=== PATIENT | female | born 1975 | race Caucasian/White ===

== ENCOUNTER 2017-01-29 19:16 | Emergency (ER) | payer MEDICAID ==
[~2017-01-29] VITALS: Ht 157.5 cm; Wt 81.1 kg
[~2017-01-29 19:16] MED LIST: ALPR1TAB2 PO; AMIT50TA PO; ELAVIL; ESCI20TA10 PO; ESTR0.5G; ESTR1TAB15 PO; HYDR-3241 PO; METH-356; METH40TA3 PO; OXYC-306
[2017-01-29 19:22] VITALS: BP 96/64
[2017-01-29] MEDS ORDERED: LIDOCAINE 1%, 20ML ONE (19:56)
[2017-01-29] MEDS ORDERED: LIDOCAINE 1%, 20ML INFIL ONE (20:00)
== END 2017-01-29 21:48 | disposition home or self-care (01) ==
LOC: ED 21:45
DX: L60.0 Ingrowing nail (principal); Z90.710 Acquired absence of both cervix and uterus
CPT/HCPCS: 11730; 99284

== ENCOUNTER 2017-05-12 19:09 | Inpatient (IN) | payer MEDICAID ==
[~2017-05-12] VITALS: Ht 157.5 cm; Wt 85.2 kg
[2017-05-12] MEDS ORDERED: METHOCARBAMOL 750 MG TABLET PO ONE (19:30)
[2017-05-12] MEDS ORDERED: KETOROLAC 30 MG/1 ML IM ONE (19:30)
[2017-05-12] MEDS ORDERED: DIAZEPAM 5 MG TABLET PO ONE (20:00)
[2017-05-12] MEDS ORDERED: DEXAMETHASONE 4 MG/ML, 1ML IVPush ONE (20:00)
[2017-05-12] MEDS ORDERED: HYDROmorphone 2 MG/ML, 1ML ONE ×2 (20:13→20:58)
[2017-05-12] MEDS ORDERED: DEXAMETHASONE 4 MG/ML, 5ML ONE (20:13)
[2017-05-12] MEDS ORDERED: DIAZEPAM 5 MG TABLET ONE (20:13)
[2017-05-12] MEDS: HYDROmorphone 1 MG/ML, 1ML IVPush PRN ×2 (20:19→21:02)
[2017-05-12] MEDS ORDERED: OMEP20TA62 PO (22:32)
[2017-05-13] MEDS ORDERED: POLYETHYLENE GLYCOL 17 GM PACKET PO PRN
[2017-05-13] MEDS ORDERED: NICOTINE 7 MG/24 HR PATCH.TD24 TD SCH
[2017-05-13] MEDS ORDERED: METHOCARBAMOL 750 MG TABLET PO PRN
[2017-05-13] MEDS ORDERED: OXYcodone/APAP 5/325MG TABLET PO PRN
[2017-05-13] MEDS ORDERED: hydrALAzine 20 MG/ML, 1ML IVPush PRN
[2017-05-13] MEDS ORDERED: ACETAMINOPHEN 325 MG TABLET PO PRN
[2017-05-13] MEDS ORDERED: ONDANSETRON 2MG/ML, 2ML IVPush PRN
[2017-05-13] MEDS ORDERED: BISACODYL 10 MG SUPP PR PRN
[2017-05-13 00:26] LABS: FREE T4 (FREE THYROXINE) 1.28 ng/dL (0.76-1.46)
[2017-05-13] MEDS ORDERED: TEMPLATE NON-FORMULARY MED. (Escitalopram Oxalate** (Lexapro**) 20 MG) HOMEMEDPO SCH ×2 (00:30→09:00)
[2017-05-13] MEDS ORDERED: CITALOPRAM 20 MG TABLET PO SCH (00:30)
[2017-05-13 00:31] LABS: THYROID STIMULATING HORMONE 0.592 mIU/L (0.358-3.740)
[2017-05-13] MEDS ORDERED: HYDROmorphone 2 MG/ML, 1ML ONE ×3 (00:34→07:39)
[2017-05-13 00:44] LABS: HEMOGLOBIN A1C 5.4 % (4.2-6.3)
[2017-05-13] MEDS: HYDROmorphone 1 MG/ML, 1ML IV PRN ×2 (00:47→04:38)
[2017-05-13] MEDS: HEPARIN 5,000 UNITS/ML, 1ML SQ SCH ×3 (00:48→13:04)
[2017-05-13 01:10] LABS: MICROSCOPIC NOT IND
[2017-05-13 01:16] LABS: CULTURE INDICATED? NO
[2017-05-13 04:35] VITALS: BP 118/69
[2017-05-13 04:43] LABS: BASOPHILS # (AUTO) 0.01 x10^3/uL (0-0.1); BASOPHILS % (AUTO) 0 % (0-1); EOSINOPHILS % (AUTO) 0 % (1-7); LYMPHOCYTES # (AUTO) 1.36 x10^3/uL (1-3.4); LYMPHOCYTES % (AUTO) 18 % (22-44); MD NO; MEAN CORPUSCULAR HEMOGLOBIN 31.4 pg (27.0-34.8); MEAN CORPUSCULAR HGB CONC 33.3 g/dL (32.4-35.8); MEAN CORPUSCULAR VOLUME 94.3 fL (80-100); MEAN PLATELET VOLUME 7.8 fL (7.4-10.4); MONOCYTES # (AUTO) 0.03 x10^3/uL (0.2-0.8); MONOCYTES % (AUTO) 0 % (2-9); NEUTROPHILS # (AUTO) 6.26 x10^3/uL (1.8-6.8); NEUTROPHILS % (AUTO) 82 % (42-75); PLATELET COUNT 244 x10^3/uL (130-400); RED BLOOD COUNT 4.98 x10^6/uL (3.82-5.3); RED CELL DISTRIBUTION WIDTH 13.6 % (9.6-15.2)
[2017-05-13 05:35] LABS: ALBUMIN 3.3 g/dL (3.4-5.0); ANION GAP 8 mmol/L (5-15); CALCIUM 8.3 mg/dL (8.5-10.1); CHLORIDE 106 mmol/L (98-107)
[2017-05-13 05:39] LABS: ALANINE AMINOTRANSFERASE 68 U/L (12-78); ALKALINE PHOSPHATASE 139 U/L (45-117); BILIRUBIN,TOTAL 0.6 mg/dL (0.2-1.0); CHOL/HDL RATIO 2.8; CHOLESTEROL, TOTAL 157 mg/dL (140-239); CREATININE 0.83 mg/dL (0.55-1.02); HDL CHOL % 36 % (28-40); HDL CHOLESTEROL (DIRECT) 56 mg/dL (40-60); LDL CHOLESTEROL,CALCULATED 79 mg/dL (54-169); LDL/HDL RATIO 1.4 (0.5-3.0); TOTAL PROTEIN 7.3 g/dL (6.4-8.2); TRIGLYCERIDES 111 mg/dL (50-200); VLDL CHOLESTEROL 22 mg/dL (0-25)
[2017-05-13 07:00] VITALS: BP 112/64
[2017-05-13] MEDS: DEXAMETHASONE 4 MG TABLET PO SCH ×3 (07:45→16:32)
[2017-05-13] MEDS: HYDROmorphone 2 MG/ML, 1ML IV PRN ×3 (07:48→16:27)
[2017-05-13] MEDS ORDERED: ALPRazolam 1MG TABLET PO SCH (09:00)
[2017-05-13] MEDS ORDERED: OMEPRAZOLE 20 MG CAPSULE.DR PO SCH (09:00)
[2017-05-13] MEDS ORDERED: METHADONE 40 MG TABLET.SOL PO SCH ×2 (09:00→12:00)
[2017-05-13] MEDS ORDERED: SENNA/DOCUSATE TABLET PO SCH (09:00)
[2017-05-13] MEDS ORDERED: METHADONE 10 MG TABLET ONE (10:48)
[2017-05-13] MEDS ORDERED: METHADONE 40 MG TABLET.SOL ONE (11:40)
[2017-05-13 13:20] VITALS: BP 109/60
[2017-05-13] MEDS ORDERED: METH750T2 PO (15:09)
[2017-05-13] MEDS ORDERED: METH4TAB2 PO (15:10)
[2017-05-13] MEDS ORDERED: METHADONE 10 MG TABLET PO SCH (21:00)
[2017-05-14] MEDS ORDERED: METHADONE 40 MG TABLET.SOL PO SCH (09:00)
== END 2017-05-13 17:21 | disposition home or self-care (01) | DRG 552 ==
LOC: ED 21:51 → EDIP 23:32 → 3NW 23:36
PROVIDERS: ADMIT Internal Medicine; ATTEND Family Medicine
DX: M51.26 Other intervertebral disc displacement, lumbar region (principal); M41.9 Scoliosis, unspecified; B19.20 Unspecified viral hepatitis C without hepatic coma; F17.210 Nicotine dependence, cigarettes, uncomplicated; G89.29 Other chronic pain; N63.10 Unspecified lump in the right breast, unspecified quadrant; K21.9 Gastro-esophageal reflux disease without esophagitis; F41.9 Anxiety disorder, unspecified; F32.9 Major depressive disorder, single episode, unspecified; K59.00 Constipation, unspecified; Z83.3 Family history of diabetes mellitus; Z90.710 Acquired absence of both cervix and uterus; Z98.1 Arthrodesis status; Z79.891 Long term (current) use of opiate analgesic; Z88.0 Allergy status to penicillin; Z90.49 Acquired absence of other specified parts of digestive tract; Z90.89 Acquired absence of other organs; Z88.5 Allergy status to narcotic agent
CPT/HCPCS: 36415; 80053; 80061; 81003; 83036; 83735; 84439; 84443; 84703; 85025; 96374; 96375; 96376; J1100; J1170; J1644

== ENCOUNTER 2017-10-22 22:07 | Emergency (ER) | payer MEDICAID ==
[~2017-10-22] VITALS: Ht 154.9 cm; Wt 82.1 kg
[~2017-10-22 22:07] MED LIST changes: +METH4TAB2 PO; +METH750T2 PO; +OMEP20TA62 PO
[2017-10-22 22:09] VITALS: BP 132/87
== END 2017-10-22 23:42 | disposition home or self-care (01) ==
LOC: ED 23:30
DX: T63.301A Toxic effect of unspecified spider venom, accidental (unintentional), initial encounter (principal); B02.9 Zoster without complications; L25.8 Unspecified contact dermatitis due to other agents; G89.29 Other chronic pain; M41.9 Scoliosis, unspecified; F17.290 Nicotine dependence, other tobacco product, uncomplicated; Y92.89 Other specified places as the place of occurrence of the external cause
CPT/HCPCS: 99283; 99406

== ENCOUNTER 2018-09-08 19:33 | Emergency (ER) | payer MEDICAID ==
[~2018-09-08] VITALS: Ht 157.5 cm; Wt 76.3 kg
[~2018-09-08 19:33] MED LIST changes: -METH-356; +METH10TA2
[2018-09-08 19:36] VITALS: BP 103/66
--- NOTE | 2018-09-08 19:45 | NUR ---
PT AMBULATORY TO ROOM FROM LOBBY, STEADY GAIT, NAD NOTED.
--- NOTE | 2018-09-08 19:53 | NUR ---
DR. YANG AT BEDSIDE EVALUATING PT
--- NOTE | 2018-09-08 20:02 | NUR ---
PT TO XRAY
--- NOTE | 2018-09-08 20:18 | NUR ---
PT BACK FROM XRAY, WARM BLANKET PROVIDED. FAMILY AT BEDSIDE
--- NOTE | 2018-09-08 20:40 | NUR ---
PT RESTING ON GUGuided Interventions IN NAD, PLAYING ON PHONE AND EATING, HOWEVER SHE REPORTS SHE IS "SO UNCOMFORTABLE". CHART UP FOR RECHECK. WILL CONTINUE TO MONITOR.
[2018-09-08] MEDS ORDERED: KETOROLAC 30 MG/1 ML ONE (21:21)
[2018-09-08] MEDS ORDERED: KETOROLAC 30 MG/1 ML IM ONE (21:30)
--- NOTE | 2018-09-08 21:32 | NUR ---
PT REFUSED MEDS, STATING SHE IS ALLERGIC TO TORADOL AND "LAST TIME THEY GAVE ME THE SHOT THAT STARTED WITH A 'D'". TORADOL NOT ON ALLERGY LIST. PT REQUESTED THAT IT BE ADDED. THIS RN ADDED ALLERGY TO LIST
--- NOTE | 2018-09-08 21:34 | NUR ---
Patient/Caregiver given discharge instructions and they have confirmed that they understand the instructions. Patient ambulatory with steady gait.
== END 2018-09-08 21:36 | disposition home or self-care (01) ==
LOC: ED 21:30
DX: S90.111A Contusion of right great toe without damage to nail, initial encounter (principal); S20.219A Contusion of unspecified front wall of thorax, initial encounter; Z90.710 Acquired absence of both cervix and uterus; Z88.0 Allergy status to penicillin; Z88.6 Allergy status to analgesic agent; W07.XXXA Fall from chair, initial encounter; Y93.89 Activity, other specified; Y92.009 Unspecified place in unspecified non-institutional (private) residence as the place of occurrence of the external cause; Y99.8 Other external cause status
CPT/HCPCS: 71046; 93005; 99283

== ENCOUNTER 2018-11-23 16:36 | Emergency (ER) | payer MEDICAID ==
[~2018-11-23] VITALS: Ht 152.4 cm; Wt 72.4 kg
[2018-11-23 16:44] VITALS: BP 122/86
--- NOTE | 2018-11-23 17:20 | NUR ---
pt ambulated to the restroom with a steady gait. she is now changing into a hospital gown at the bedside. we are awaiting an md to assess.
--- NOTE | 2018-11-23 17:30 | NUR ---
amaya (rn) is assuming care of this pt while i have a lunch break. sbar report was exchanged at the bedside.
[2018-11-23] MEDS ORDERED: OXYcodone/APAP 5/325MG TABLET ONE (17:52)
[2018-11-23] MEDS ORDERED: OXYcodone IR 5MG TABLET ONE (17:58)
[2018-11-23] MEDS ORDERED: OXYcodone IR 5MG TABLET PO PRN (18:00)
[2018-11-23] MEDS ORDERED: OXYcodone/APAP 5/325MG TABLET PO ONE (18:00)
--- NOTE | 2018-11-23 18:01 | NUR ---
ETRESA RN: PT MEDICATED ORDERED. PT REFUSED PERCOCET DUE TO TYLENOL AND HEP C HX.
[2018-11-23] MEDS ORDERED: OXYC10TA6 PO (18:11)
--- NOTE | 2018-11-23 18:37 | NUR ---
NORMAN (RN) IS ASSUMING CARE OF THIS PT AT THIS TIME. SBAR REPORT WAS EXCHANGED AT THE BEDSIDE.
== END 2018-11-23 18:54 | disposition home or self-care (01) ==
LOC: ED 17:54
DX: S39.012A Strain of muscle, fascia and tendon of lower back, initial encounter (principal); G89.29 Other chronic pain; Z90.710 Acquired absence of both cervix and uterus; F17.200 Nicotine dependence, unspecified, uncomplicated; X58.XXXA Exposure to other specified factors, initial encounter; Y93.89 Activity, other specified; Y92.89 Other specified places as the place of occurrence of the external cause; Y99.8 Other external cause status
CPT/HCPCS: 72110; 99283